=== PATIENT | female | born 1950 | race Caucasian/White ===

== ENCOUNTER 2016-09-25 12:20 | Observation (INO) | payer MEDICARE, OTHER ==
--- NOTE | ~2016-09-25 | DS ---
Discharge Summary [facility] [address] [place]. [address] NAME: NANDO HANLEY : 48 STATUS : DIS [place]bin PAT#: [id number] AGE: 66 ADM/REG DATE : 09/25/16 MR#: [id number] REPORT SERV DATE: 09/27/16 DICTATED BY: JR. PAREDES WILLIAM JOHN DATE: 09/26/16 REPORT STATUS : Draft TRANSCRIBED BY: MODSunil DATE: 09/26/16 ADMISSION DATE: 09/25/2016 DISCHARGE DATE: 09/26/2016 DISCHARGE DIAGNOSES: Include: 1. Urinary tract infection. 2. Leukocytosis. 3. Essential hypertension. 4. Postsurgical hypothyroidism. 5. Dyslipidemia. 6. History of partial gastric resection. OPERATIONS, PROCEDURES, AND TREATMENTS: Operations, procedures, and treatments include: 1. Urine culture done as an outpatient on 09/24/2016 was a contaminated sample. Urine culture done 09/25/2016 is pending. 2. Blood cultures x2 done 09/25/2016 are pending. 3. Renal ultrasound done 09/25/2016 showed nonobstructing intrarenal calculus on the right otherwise negative study. DISCHARGE MEDICATIONS: Include: 1. Aspirin 81 mg orally daily. 2. Lipitor 20 mg orally daily. 3. Vitamin B12 of 1000 mcg orally daily. 4. Calcium plus vitamin D 600 mg orally daily. 5. Multivitamin tablet orally daily. 6. Synthroid 150 mcg orally daily. 7. Cozaar 25 mg orally daily. 8. Fish oil daily. 9. Melatonin 5 mg at bedtime. 10.Levaquin 750 mg orally daily through 09/29/2016. HOSPITAL COURSE: The patient is a 66-year-old female, sent from [facility] on 09/25/2016 for urinary tract infection. 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 The patient has had recurrent urinary tract infections for about six months. She has had dysuria with left flank pain this week with temperatures up to 99.1. She went to primary care office and was started on Macrodantin on 09/24/2016. Her urine culture was obtained at that time. The patient then developed shortness of breath on 09/25/2016, went back to the office where an i-STAT white blood count was checked, it was found to be 20,000. Given the patient's history of anaphylactic shock in the past, the patient was sent to [facility] for admission and observation. On admission, the patient's temperature was 98.1, blood pressure was 147/70, heart rate 95, respiratory rate of 16. Her exam was unremarkable. Laboratory from [facility] showed a white count of 19.3 with a differential which included 89% neutrophils. The remainder of the lab was unremarkable. Urinalysis upon entry showed moderate leukocyte esterase with 6 white blood cells per high- power field. Discharge Summary [facility] [address] [place]. [address] NAME: NANDO HANLEY : 48 STATUS : DIS Corbin PAT#: [id number] AGE: 66 ADM/REG DATE : 09/25/16 MR#: [id number] REPORT SERV DATE: 09/27/16 DICTATED BY: JR. PAREDES WILLIAM JOHN DATE: 09/26/16 REPORT STATUS : Draft TRANSCRIBED BY: JASON DATE: 09/26/16 The patient is admitted to [facility]. She was started on oral Levaquin. She had a renal ultrasound to ensure there was no bladder stone or obstructing kidney stone causing the recurrent urinary tract infection. She did have an intrarenal stone; however, this is unlikely to be the source of seeding. The patient's white blood count completely resolved, and by hospital day #2, her white blood count was 9.5. I discussed the case with the patient's provider at [facility], Lacy. We agreed to discharge the patient to complete oral Levaquin. The patient and her are leaving [facility] Saturday afternoon for a two-week vacation. Lacy agrees to follow her up Saturday morning to check the blood culture and urine cultures obtained here at [facility]. DISCHARGE DIET: Regular. ACTIVITY: As tolerated. CONDITION: Good. FOLLOWUP ISSUES: 1. Follow up at [facility] Saturday morning with Lacy or Dr. Lester. 2. Follow up on urine culture and blood cultures obtained on 09/25/2016 at [facility]. For discharge exam and laboratory, please see daily progress note. AMARJIT/JASON Fransisco Paredes Jr, MD / [id number] CC: Fransisco Paredes Jr, MD William T. Bates III, D.O.
--- NOTE | ~2016-09-25 | HP ---
History And Physical [id number] [place]. [address] NAME: NANDO HANLEY : 48 STATUS : ADM IN [facility]#: [id number] AGE: 66 ADM/REG DATE : 09/25/16 MR#: [id number] REPORT SERV DATE: 09/26/16 DICTATED BY: JR. PAREDES WILLIAM JOHN DATE: 09/25/16 REPORT STATUS : Draft TRANSCRIBED BY: MODSunil DATE: 09/25/16 DATE OF ADMISSION: 09/25/2016 HISTORY OF PRESENT ILLNESS: A 66-year-old female sent to the emergency room from [facility] for urinary tract infection. The patient apparently has a history of an anaphylactic shock episode after being given cephalosporin, which eventually resulted in Stephen angina. The details of which were unclear as this was at an outside hospital. I discussed the case with Cathy, nurse practitioner, at the [facility]. The patient says she has had urinary tract infections recurrently for the past six months. She has had dysuria with left flank pain this week with temperature up to 99.1. She went to primary care physician, was started on Macrodantin. She had urinalysis of which I do not have the results. She also had a urine culture sent, which is currently pending. This morning, she experienced some shortness of breath, went back to her primary care physician's office where white blood count was checked on an i-STAT machine was found to be 20,000. She was sent here for further care given her anaphylactic reaction in the past. The patient is without other new complaint. PAST MEDICAL HISTORY: Includes 1. Hypertension. 2. History of cholelithiasis, status post cholecystitis in 03/2016. 3. Hypothyroidism. 4. 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 5. History of thyroid resection for goiter, which was benign. 6. History of sections. 7. History of Stephen angina. MEDICATIONS: Include 1. Synthroid 112 mcg daily. 2. Losartan 25 mg daily. 3. Lipitor 20 daily. 4. Macrodantin 100 of which she took only one dose. ALLERGIES: CEFUROXIME WHICH CAUSED ANAPHYLAXIS ABOVE, CODEINE, AND PENICILLIN. FAMILY HISTORY: Mother passed at age 89 of stroke. Father at age 75, had coronary artery disease and cancer. One brother living and healthy other than hypertension. One sister living has hypertension and obesity. SOCIAL HISTORY: Lives in [place] with her . She is . 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 She smokes about half a pack per day for 40 years. She does drink a few drinks per week. She denies illicit drugs. REVIEW OF SYSTEMS: Negative in all 12 systems reviewed except does admit to low-grade fever, chills, shortness of breath with wheezes this morning, occasional diarrhea, dysuria, without hematuria. History And Physical [address] [address] NAME: NANDO HANLEY : 48 STATUS : ADM IN [facility]#: [id number] AGE: 66 ADM/REG DATE : 09/25/16 MR#: [id number] REPORT SERV DATE: 09/26/16 DICTATED BY: JR. PAREDES WILLIAM JOHN DATE: 09/25/16 REPORT STATUS : Draft TRANSCRIBED BY: JASON DATE: 09/25/16 PHYSICAL EXAMINATION: VITAL SIGNS: Temperature 98.1, blood pressure 147/70, heart rate 95, and respiratory rate 16. GENERAL: The patient is alert, oriented, in no acute distress. HEENT: Her pupils are equal, round, and reactive to light. Extraocular motion intact. Sclerae anicteric. Oropharynx is clear. NECK: Supple. There is no jugular venous distention, thyromegaly, or bruits. LUNGS: Clear to auscultation bilaterally with symmetrical chest rise. CARDIOVASCULAR: S1, S2 without gallop, murmur, or rub. There is a regular rate and rhythm. ABDOMEN: Soft, nontender, bowel sounds are present. EXTREMITIES: Show no clubbing, cyanosis, or edema. BACK: Had mild costovertebral angle tenderness on the right. LYMPH: Lymph node survey is negative in cervical and supraclavicular region. NEUROLOGICAL: Cranial nerves 2 through 12 are intact. Strength and sensation are full and equal throughout. DERMATOLOGIC: There is no rash or other lesions noted. PSYCHIATRIC: Mood and affect are appropriate. LABORATORY DATA: White count 19.3, hemoglobin 14.5, platelets of 189, differential included 89% neutrophils. Sodium 139, potassium 3.7, chloride 105, bicarb 28, BUN 18, creatinine 0.6, glucose 122, calcium 9.2. Total protein 7.5, albumin 4.1, total bilirubin 0.8, alkaline phosphatase 107, SGOT of 16, SGPT of 26. Urinalysis had moderate leukocyte esterase, negative nitrite, and there were 6 white blood cells per high-powered field. Renal ultrasound is pending. ASSESSMENT AND PLAN: A 66-year-old white female with: 1. Urinary tract infection by report from her primary care physician, got 1 dose of Macrodantin. She has a history of recurrent urinary tract infections. We will check urine culture and blood cultures x2. Empirically place the patient on Levaquin. We will check a renal ultrasound to rule out stones harboring as a source of recurrent infections. 2. Hypertension. Continue losartan. 3. Postsurgical hypothyroidism. Continue Synthroid. 4. Hyperlipidemia. Continue Lipitor. 5. History of partial gastric resection. 6. Observation status. 7. I will follow this patient. AMARJIT/JASON Fransisco Paredes Jr, MD / [id number] History And Physical [address] [address] NAME: NANDO HANLEY : 48 STATUS : ADM IN [facility]#: [id number] AGE: 66 ADM/REG DATE : 09/25/16 MR#: [id number] REPORT SERV DATE: 09/26/16 DICTATED BY: JR. PAREDES WILLIAM JOHN DATE: 09/25/16 REPORT STATUS : Draft TRANSCRIBED BY: JASON DATE: 09/25/16 CC: Fransisco Paredes Jr, MD Dr. Bates
[~2016-09-25 12:20] MED LIST: ASAB PO; CALTRA600D PO; CYANO1000T PO; FISH-EPA1000 MG PO; IBU-200200 MG PO; LIPITOR20 PO; LOTREL1 CA2 PO; MULTIVIT/MIN PO; SYN.15 PO
[2016-09-25 14:24] LABS: BASOPHILS 0.2 %; BASOPHILS ABSOLUTE 0.03 10/3/uL (0.0-0.16); EOSINOPHILS 0.2 %; EOSINOPHILS ABSOLUTE 0.03 10/3/uL (0.0-0.53); HEMATOCRIT 43.5 % (36.0-48.0); HEMOGLOBIN 14.5 g/dL (12.0-16.0); IMMATURE GRANULOCYTES 0.3 %; IMMATURE GRANULOCYTES ABSOLUTE 0.05 10/3/uL (0.0-0.11); LYMPHOCYTES 6.6 %; LYMPHOCYTES ABSOLUTE 1.27 10/3/uL (0.67-4.30); MEAN CORPUS HGB CONC 33.3 g/dL (32.0-36.0); MEAN CORPUSCULAR HEMOGLOB 32.1 pg (26.0-34.0); MEAN CORPUSCULAR VOLUME 96.2 fL (80-100); MONOCYTES 3.2 %; MONOCYTES ABSOLUTE 0.62 10/3/uL (0.21-1.20); NEUTROPHILS 89.5 %; NEUTROPHILS ABSOLUTE 17.26 10/3/uL (2.02-8.40); PLATELET COUNT 189 10/3/uL (150-400); RBC DISTRIBUTION WIDTH 13.5 % (12.0-16.0); RED CELL COUNT 4.52 10/6/uL (4.0-5.6)
[2016-09-25 14:26] LABS: MANUAL DIFF NO %; WHITE BLOOD CELLS 19.3 10/3/uL (4.5-10.5)
[2016-09-25 14:31] LABS: PARTIAL THROMBO TIME 25.6 SEC (22.5-37.2); PROTIME (NOT ORD) 12.9 SEC (12.0-14.5)
[2016-09-25 14:38] LABS: A/G RATIO 1.2 (0.7-1.9); ALBUMIN 4.1 G/DL (3.5-5.0); ALKALINE PHOSPHATASE 107 U/L (45-117); BUN (BLOOD UREA NITROGEN) 18 MG/DL (6-23); CALCIUM, SERUM 9.2 MG/DL (8.5-10.4); CHLORIDE, SERUM 105 MMOL/L (96-112); CO2 (CARBON DIOXIDE) 28 MMOL/L (24-34); CREATININE 0.66 MG/DL (0.55-1.02); GFR AFRICAN AMERICAN 106 ML/MIN (>=60); GFR NON AFRICAN AMERICAN 91 ML/MIN (>=60); POTASSIUM, SERUM 3.7 MMOL/L (3.5-5.3); SGOT(AST) 16 U/L (5-40); SGPT(ALT) 26 U/L (5-65); TOTAL BILIRUBIN 0.8 MG/DL (0-1.2); TOTAL PROTEIN 7.5 G/DL (6.0-8.5)
[2016-09-25 14:39] LABS: GLOBULIN 3.4 G/DL (2.5-4.1); GLUCOSE, SERUM 122 MG/DL (60-99); SODIUM, SERUM 139 MMOL/L (135-148)
[2016-09-25 14:43] LABS: ASCORBIC ACID (UR NOT ORDER) NEG (NEG); BILIRUBIN, URINE NEGATIVE (NEG); KETONE, URINE TRACE MG/DL (NEG); LEUKOCYTE ESTERASE(NOT OR MOD (NEG); WBC (NOT ORDERED) (RFLEX) 6 (0-5)
[2016-09-25] MEDS ORDERED: LEVOTHYROXIN150 MCG PO (15:18)
[2016-09-25] MEDS ORDERED: LIPITOR20 PO (15:18)
[2016-09-25] MEDS ORDERED: COZ25 PO (15:18)
[2016-09-25] MEDS ORDERED: MACROBID PO (15:19)
[2016-09-25] MEDS ORDERED: ASAB PO (15:19)
[2016-09-25] MEDS ORDERED: CYANO1000T PO (15:20)
[2016-09-25] MEDS ORDERED: OTC NASAL SPRAY NAS (15:20)
[2016-09-25] MEDS ORDERED: CENTRUM PO (15:21)
[2016-09-25] MEDS ORDERED: CALTRA600D PO (15:21)
[2016-09-25] MEDS ORDERED: FISH OIL PO (15:22)
[2016-09-25] MEDS ORDERED: COENZYME Q10 PO (15:22)
[2016-09-25] MEDS ORDERED: MELATONIN5 M1 PO (15:23)
[2016-09-25] MEDS ORDERED: SLEEP AID PO (15:23)
[2016-09-25 15:46] LABS: PROCALCITONIN 0.09 ng/mL (<0.5)
[2016-09-26 04:28] LABS: BASOPHILS 0.2 %; BASOPHILS ABSOLUTE 0.02 10/3/uL (0.0-0.16); EOSINOPHILS 2.1 %; HEMOGLOBIN 12.8 g/dL (12.0-16.0); IMMATURE GRANULOCYTES 0.1 %; IMMATURE GRANULOCYTES ABSOLUTE 0.01 10/3/uL (0.0-0.11); LYMPHOCYTES 18.9 %; LYMPHOCYTES ABSOLUTE 1.79 10/3/uL (0.67-4.30); MEAN CORPUS HGB CONC 33.3 g/dL (32.0-36.0); MEAN CORPUSCULAR HEMOGLOB 31.9 pg (26.0-34.0); MEAN CORPUSCULAR VOLUME 95.8 fL (80-100); MEAN PLATELET VOLUME 8.9 fL (9.2-13.0); MONOCYTES 6.2 %; MONOCYTES ABSOLUTE 0.59 10/3/uL (0.21-1.20); NEUTROPHILS 72.5 %; NEUTROPHILS ABSOLUTE 6.85 10/3/uL (2.02-8.40); PLATELET COUNT 174 10/3/uL (150-400); RBC DISTRIBUTION WIDTH 13.3 % (12.0-16.0); RED CELL COUNT 4.01 10/6/uL (4.0-5.6)
[2016-09-26 04:29] LABS: HEMATOCRIT 38.4 % (36.0-48.0); MANUAL DIFF NO %; WHITE BLOOD CELLS 9.5 10/3/uL (4.5-10.5)
[2016-09-26 04:39] LABS: CALCIUM, SERUM 8.4 MG/DL (8.5-10.4); CHLORIDE, SERUM 110 MMOL/L (96-112); CO2 (CARBON DIOXIDE) 24 MMOL/L (24-34); CREATININE 0.54 MG/DL (0.55-1.02); GFR AFRICAN AMERICAN 113 ML/MIN (>=60); GFR NON AFRICAN AMERICAN 98 ML/MIN (>=60); GLUCOSE, SERUM 122 MG/DL (60-99); POTASSIUM, SERUM 3.8 MMOL/L (3.5-5.3); SODIUM, SERUM 143 MMOL/L (135-148)
[2016-09-26 04:50] LABS: BUN (BLOOD UREA NITROGEN) 14 MG/DL (6-23)
[2016-09-26] MEDS ORDERED: LEVAQUIN750 MG PO (11:09)
== END 2016-09-26 11:24 | disposition home or self-care (01) ==
LOC: CDU1 12:20 → CDU2 12:35
PROVIDERS: Internal Medicine; Nurse Practitioner Family
DX: N39.0 Urinary tract infection, site not specified (principal); D72.829 Elevated white blood cell count, unspecified; I10 Essential (primary) hypertension; E89.0 Postprocedural hypothyroidism; E78.5 Hyperlipidemia, unspecified; F17.210 Nicotine dependence, cigarettes, uncomplicated; Z98.890 Other specified postprocedural states; Z88.0 Allergy status to penicillin; Z88.5 Allergy status to narcotic agent; Z88.8 Allergy status to other drugs, medicaments and biological substances
CPT/HCPCS: 76705; 76775; 80048; 80053; 81001; 84145; 85025; 85610; 85730; 87040; 87086; 96372; A9270-GY; G0378